=== PATIENT | female | born 1995 | race Hispanic/Latino ===

== ENCOUNTER → 2018-01-05 | Day surgery (SDC) | payer BC ==
[~2018-01-05] MED LIST: BAYER; DEXAMETHASONE SOD PHOS INJ 4 MG/ML VIAL ONE; FENTANYL CITRATE/PF 100MCG/2 ML INJ ONE; HYDROCODONE/APAP 5MG-325MG TAB ONE; HYDROXYCHLOROQ200 MG; LIDOCAINE HCL 2% LOCAL INJ 5 ML SDV VIAL INJ ONE; MIDAZOLAM HCL 2 MG/2 ML VIAL ONE; ONDANSETRON HCL INJ 2 MG/ML VIAL ONE; PROPOFOL IV EMULSION 10 MG/ML 20 ML VIAL ONE; SEVOFLURANE INHAL SOLN 250 ML PEN BTL ONE
[2018-01-05 11:24] LABS: BASOPHILS % 0.3 % (0.0-1.0); EOSINOPHILS # (AUTO) 0.2 (0.0-0.4); HEMATOCRIT 37.7 % (34.2-44.1); HEMOGLOBIN 12.9 g/dL (12.0-16.0); LYMPHOCYTES # (AUTO) 2.1 (1.0-3.2); LYMPHOCYTES % 27.1 % (18.0-39.1); MEAN CORPUSCULAR HEMOGLOBIN 29.9 pg (28-32); MEAN CORPUSCULAR HGB CONC 34.2 g/dL (31-35); MEAN CORPUSCULAR VOLUME 87.5 fL (81-99); MONOCYTES # (AUTO) 0.5 (0.2-0.8); MONOCYTES % 6.9 % (4.4-11.3); NEUTROPHILS % 63.4 % (38.7-80.0); PLATELET COUNT 259 x10e3/uL (140-360); RED BLOOD COUNT 4.31 x10e6/uL (3.6-5.1); RED CELL DISTRIBUTION WIDTH 12.4 % (11.7-14.4)
--- NOTE | 2018-01-06 10:56 | Operative Report ---
DATE OF PROCEDURE: January 05, 2018 LITIGATION PARTNER: None. PREOPERATIVE DIAGNOSIS: Missed . POSTOPERATIVE DIAGNOSIS: Missed . OPERATION PERFORMED: Suction dilatation and curettage. ANESTHESIA: General. ESTIMATED BLOOD LOSS: 200 mL. COMPLICATIONS: None. FINDINGS: Approximately 8-week size gravid uterus with moderate products of conception. SPECIMENS: Included products of conception. INDICATIONS: The patient is a 22-year-old 2 para 0-0-1-0 at 12 weeks gestation by last menstrual period who presented for routine obstetrical visit and was found to have a demise of approximately 8 weeks gestational age. Of note, the genetic screening that had been done was positive for monosomy X. DETAILS OF PROCEDURE: Prior to the procedure, the risks, benefits and alternatives were discussed and the patient agreed to proceed. Following anesthesia, the patient was placed in appropriate position. Prepping and draping was performed and timeout was done and a catheter was used to drain the bladder. A weighted speculum was placed in the vagina and the cervix was grasped with single-tooth tenaculum. The cervix was then dilated with Hegar dilators in order to allow entries of a suction curette. Using an 8-mm suction curette, the intrauterine contents were then evacuated without difficulty on multiple passes. A sharp curettage was then used to ensure good gritty texture in all quadrants and then suction curette passed once more with no additional tissue obtained. After complete evacuation of the all tissue, the tenaculum was removed from the cervix and good hemostasis has been noted. Patient tolerated the procedure well, was transferred to the recovery room in stable condition. Job#: [id number] JANIE
== END | disposition home or self-care (01) ==
LOC: OR 10:07
PROVIDERS: ATTEND Obstetrics & Gynecology Obstetrics
DX: O02.1 Missed abortion (principal); Q96.9 Turner's syndrome, unspecified; M32.9 Systemic lupus erythematosus, unspecified; Z88.6 Allergy status to analgesic agent; Z79.82 Long term (current) use of aspirin; Z86.718 Personal history of other venous thrombosis and embolism
CPT/HCPCS: 36415; 59820; 84702; 85025; 88305; J1100; J2001; J2250; J2405